=== PATIENT | male | born 1970 | race Caucasian/White ===

== ENCOUNTER → 2021-11-20 | Outpatient (REF) | LOC: M PLAIMG 13:30 | PROVIDERS: ATTEND Internal Medicine | DX: M43.17 Spondylolisthesis, lumbosacral region (principal); M51.37 Other intervertebral disc degeneration, lumbosacral region; M48.061 Spinal stenosis, lumbar region without neurogenic claudication ==

== ENCOUNTER → 2023-12-16 | Outpatient (REF) | LOC: M PLAIMG 12:12 | PROVIDERS: ATTEND Internal Medicine | DX: R52 Pain, unspecified (principal); M47.816 Spondylosis without myelopathy or radiculopathy, lumbar region ==